=== PATIENT | female | born 1955 | race Caucasian/White ===

== ENCOUNTER 2020-01-22 06:51 | Day surgery (SDC) | payer OTHER ==
--- NOTE | 2020-01-18 13:07 | PCM.PREANE ---
Preanesthetic Assessment - Procedure Proposed Procedure: Right Total Knee Arthroplasty - Anesthesia/Transfusion/Family Hx Anesthesia History: Prior Anesthesia Without Reaction Type of Anesthesia Reaction: Excessive Nausea/Vomiting Family History of Anesthesia Reaction: No Transfusion History: No Prior Transfusion(s) Intubation History: Unknown - Review of Systems General: No Symptoms Pulmonary: No Symptoms (quit smoking in 1985, ETOH: rarely) Cardiovascular: No Symptoms Gastrointestinal: No Symptoms Neurological: No Symptoms, Tingling (right arm paresthesia, patient states she thinks she has tennis elbow.) Other: Reports: Thyroid Problems (Hypothyroid) - Physical Assessment NPO Status Date: 01/21/20 NPO Status Time: 23:00 Vital Signs: HR:61 Sat:97% Temp:97.7 B/P:102/60 Resp:16 Height: 1.6 m Weight: 82 kg ASA Class: 2 Mental Status: Alert & Oriented x3 Airway Class: Mallampati = 2 Dentition: Reports: Normal Dentition, Staint Clair(s), Caries Thyro-Mental Finger Breadths: 3 Mouth Opening Finger Breadths: 3 ROM/Head Extension: Full Lungs: Clear to Auscultation, Normal Respiratory Effort Cardiovascular: Regular Rate, Regular Rhythm, No Murmurs - Lab Values: Laboratory Last Values MRSA (PCR) Negative 01/16/20 16:35 All labs reviewed and noted and within acceptable ranges to proceed with scheduled procedure. - Imaging/EKG Impressions: EKG: SB rate=56, borderline Right axis deviation - Allergies Allergies/Adverse Reactions: Allergies Allergy/AdvReac Type Severity Reaction Status Date / Time No Known Allergies Allergy Verified 01/19/20 11:30 - Anesthesia Plan Pre-Op Medication Ordered: Other (Preoperative oral medications: lyrica, tylenol, oxycodone all at: 0705) - Acknowledgements Anesthesia Type Planned: Spinal (Right Adductor Canal Block under US guidance for post operative pain control requested by Dr. Kim.) Pt an Appropriate Candidate for the Planned Anesthesia: Yes Alternatives and Risks of Anesthesia Discussed w Pt/Guardian: Yes Pt/Guardian Understands and Agrees with Anesthesia Plan: Yes PreAnesthesia Questionnaire - HOME MEDS Home Medications: Home Meds Ascorbic Acid/Collagen Hydr [Collagen Plus Vit C] 1 tab PO DAILY 01/19/20 [History] Calcium Carb/Magnesium Ox,Carb [Neel-Mag] 1 tab PO DAILY 01/19/20 [History] Cholecalciferol (Vitamin D3) [Vitamin D3] 5,000 unit PO DAILY 01/19/20 [History] Fish Oil/Hawthorn-3 Fatty Acids [Fish Oil 1,000 MG] 1 gm PO DAILY 01/19/20 [History] Multivitamin 1 tab PO DAILY 01/19/20 [History] Thyroid,Pork [Lancing Thyroid] 120 mg PO DAILY 01/19/20 [History] Aspirin [Aspirin EC] 325 mg PO DAILY #60 tablet.dr 01/22/20 [Rx] Cyclobenzaprine [Flexeril] 10 mg PO BID PRN #20 tab 01/22/20 [Rx] Rivaroxaban [Xarelto] 10 mg PO DAILY #14 tab 01/22/20 [Rx] oxyCODONE 5 - 10 mg PO Q4H PRN #60 tab 01/22/20 [Rx]
--- NOTE | 2020-01-18 13:48 | PCM.SN.2 ---
- Free Text/Narrative Note: Anesthesia Note: Time Out: 1012 Start: 1012 Stop: 1021 Procedure: Right Adductor Canal Block under US guidance for postoperative pain control requested by Dr. Kim. Chart reviewed, allergies noted, consent signed, and monitors/alarms on and operating. Right upper leg prepped times two chloropreps. Under sterile technique and US guidance right femoral nerve located in right adductor canal. Right femoral artery and vein also located. 4 inch 21 gauge stimuplex needle guided under US and 25mls of 0.5%ropivacaine with 1:200,000 epi placed incrementally with negative aspirations noted with each injection. Patient tolerated procedure well. Thank you! Jacqueline Mei CRNA
[~2020-01-22 06:51] MED LIST: Acetaminophen 325 MG Tab PO SCH; EPINEPHrine 1 MG/ML SDV ONE; Lactated Ringers 1,000 ML IV SCH; Lidocaine 1%/Sod Bicarbonate in NS 8.4% 1 ML Syringe IDERM PRN; Morphine 8 MG, EPINEPHrine 0.3 MG, Cefuroxime 750 MG, Ketorolac 30 MG, Sodium Chloride ... PRN; Pregabalin 25 MG Cap PO SCH; Ropivacaine 0.5% 5 MG/ML 30 ML SDV ONE; Sodium Chloride 0.9% 10 ML Syringe FLUSH PRN; oxyCODONE ER 10 MG TAB.ER PO SCH
[2020-01-22] MEDS ORDERED: Ondansetron 4 MG/2 ML SDV ONE (06:59)
[2020-01-22] MEDS ORDERED: Ketorolac 30 MG/ML SDV ONE (06:59)
[2020-01-22] MEDS ORDERED: Lidocaine 1% 4 ML ONE (06:59)
[2020-01-22] MEDS ORDERED: Dexamethasone 4 MG/ML 5 ML MDV ONE (06:59)
[2020-01-22] MEDS ORDERED: Lactated Ringers 2,000 ML ONE (06:59)
[2020-01-22] MEDS ORDERED: fentaNYL 100 MCG/2 ML SDV ONE (07:00)
[2020-01-22] MEDS ORDERED: Propofol 200 MG/20 ML SDV ONE (07:00)
[2020-01-22] MEDS ORDERED: Midazolam 1 MG/ML 2 ML SDV ONE (07:01)
[2020-01-22] MEDS ORDERED: Ketamine 500 mg/10 ML MDV ONE (07:01)
[2020-01-22] MEDS ORDERED: Morphine 8 MG, EPINEPHrine 0.3 MG, Cefuroxime 750 MG, Ketorolac 30 MG, Sodium Chloride ... PRN ×5 (07:02)
[2020-01-22] MEDS ORDERED: Bupivacaine 0.25% 10 ML SDV ONE (07:34)
[2020-01-22] MEDS ORDERED: Scopolamine 1.5 MG Transdermal Patch TRDERM ONE (08:00)
[2020-01-22] MEDS ORDERED: Metoclopramide 10 MG/2 ML SDV IV PRN (08:26)
[2020-01-22] MEDS ORDERED: ePHEDrine 50 MG/ML SDV IVPUSH PRN (08:26)
[2020-01-22] MEDS ORDERED: HYDROmorphone 0.5 MG/0.5 ML Syringe IVPUSH PRN (08:26)
[2020-01-22] MEDS ORDERED: diphenhydrAMINE 50 MG/ML SDV IVPUSH PRN (08:26)
[2020-01-22] MEDS ORDERED: Ondansetron 4 MG/2 ML SDV IVPUSH PRN (08:26)
[2020-01-22] MEDS ORDERED: fentaNYL 100 MCG/2 ML SDV IVPUSH PRN (08:26)
[2020-01-22] MEDS: Vancomycin 1 GM SDV ONE ×2 (09:37→09:47)
[2020-01-22] MEDS ORDERED: HYDROmorphone 0.5 MG/0.5 ML Syringe ONE (09:52)
[2020-01-22] MEDS ORDERED: Midazolam 1 MG/ML 2 ML SDV IVPUSH STA (10:22)
--- NOTE | 2020-01-22 10:34 | PCM.POSTAN ---
POST ANESTHESIA ASSESSMENT - MENTAL STATUS Mental Status: Alert - VITAL SIGNS Vital Signs: Last Vital Signs Temp 97.5 01/22/20 10:08 Pulse 69 01/22/20 10:08 Resp 9 01/22/20 10:08 BP 116/65 01/22/20 10:08 Pulse Ox 99% 01/22/20 10:08 - RESPIRATORY Respiratory Status: Respiratory Rate WNL, Airway Patent, O2 Saturation Stable, Supplemental Oxygen - CARDIOVASCULAR CV Status: Pulse Rate WNL, Blood Pressure Stable - GASTROINTESTINAL GI Status: No Symptoms - POST OP HYDRATION Hydration Status: Adequate & Stable
[2020-01-22] MEDS ORDERED: oxyCODONE 5 MG Tab PO PRN (11:06)
--- NOTE | 2020-01-22 12:43 | CR ---
PROCEDURE INFORMATION: Exam: XR Right Knee Exam date and time: 01/22/2020 10:15 AM Age: 64 years old Clinical indication: Condition or disease; Joint replacement status; Knee; Right; Additional info: Right total knee replacement; Post-op films TECHNIQUE: Imaging protocol: XR Right knee. Views: 1 or 2 views. COMPARISON: DX Knee 3V Rt 02/21/2014 3:38 PM FINDINGS: Bones/joints: Status post TKA. Prosthetic components are well positioned and aligned. Postoperative pneumarthrosis. Soft tissues: Normal. Other findings: None IMPRESSION: Satisfactory postoperative examination of the right knee following TKA Thank you for allowing us to participate in the care of your patient. Dictated and Authenticated by: Paul Carbajal MD 01/22/2020 12:02 PM Central Time ([place] & [place]) [facility]
[2020-01-22] MEDS ORDERED: Cyclobenzaprine 10 MG Tab PO ONE (13:00)
--- NOTE | 2020-01-22 13:20 | PCM48HPAN ---
Post Anesthesia Note - EVALUATION WITHIN 48HRS OF ANESTHETIC Vital Signs in Normal Range: Yes Patient Participated in Evaluation: Yes Respiratory Function Stable: Yes Airway Patent: Yes Cardiovascular Function Stable: Yes Hydration Status Stable: Yes Pain Control Satisfactory: Yes Nausea and Vomiting Control Satisfactory: Yes Mental Status Recovered: Yes Vital Signs: Last Vital Signs Temp 36.1 C 01/22/20 11:10 Pulse 54 L 01/22/20 12:00 Resp 16 01/22/20 12:00 BP 121/71 01/22/20 12:00 Pulse Ox 97 01/22/20 12:20
[2020-01-22] MEDS ORDERED: Acetaminophen 325 MG Tab PO ONE (13:30)
--- NOTE | 2020-02-01 12:07 | PCM.OPNOTE ---
- General Post-Op/Procedure Note Date of Surgery/Procedure: 01/22/20 Operative Procedure(s): right total knee arthroplasty Pre Op Diagnosis: right knee osteoarthrosis Post-Op Diagnosis: Same Anesthesia Technique: Local, MAC, Spinal Primary Surgeon: Homero Kim Anesthesia Provider: Jacqueline Mei Equal Opportunity Assistant: Giselle Rivas Equal Opportunity Assistant: Mariela Hastings EBSharon in mLs: 5 Complications: None Condition: Good Free Text/Narrative:: 6 femur 5 10mm 32x10
--- NOTE | 2020-02-01 12:59 | OR ---
DATE OF OPERATION: 01/22/2020 SURGEON: Homero Kim MD OPERATION PERFORMED: Right total knee arthroplasty. PREOPERATIVE DIAGNOSIS: Right knee osteoarthrosis. POSTOPERATIVE DIAGNOSIS: Right knee osteoarthrosis. ANESTHESIA: Local MAC with spinal. ANESTHESIA PROVIDER: Jacqueline Mei CRNA. ASSISTANTS: Giselle Rivas PA-C; Mariela Hastings LPN. ESTIMATED BLOOD LOSS: 5 mL. COMPLICATIONS: None. CONDITION: Stable. IMPLANTS: 1. Mcclelland size 6 cemented PS femur. 2. Diane size 5 cemented universal tibial base plate. 3. Mcclelland size 5, 10 mm PS X3 polyethylene insert. 4. Mcclelland size 32 x 10 mm cemented asymmetric patella. DESCRIPTION OF PROCEDURE: The patient was identified in the preop holding area. Proper site was marked and identified by the surgeon. The patient was taken back to the operating theater. After adequate anesthesia, the patient's right lower extremity had a nonsterile tourniquet applied and it was sterilely prepped and draped in the usual sterile fashion. OR time-out was performed. The patient received 2 g IV Ancef. At this time, the right lower extremity was exsanguinated. Tourniquet was insufflated to 300 mmHg. Standard medial parapatellar incision was made. Medial parapatellar arthrotomy was created. Deep fibers of the MCL were raised and anterior fat pad was resected. At this time, attention was turned to the patella. Patella measured 24, it was resected to a 14 for a 32 x 10 mm patella. Drill holes were then drilled and found to be in adequate position. The drill was then drilled in the distal femur and the intramedullary distal femoral cutting guide was then placed. 8 mm was resected off the distal femur and was found to be an adequate resection. Sizing guide was placed. It was found to be a size 6 cemented PS femur that was shown on the implant record at the beginning of this dictation. The drill holes were drilled for the epicondylar axis using Whitesides line and epicondyles as reference. At this time, the 4-in-1 cutting block was placed. An anterior posterior and anterior and posterior chamfer cuts were then completed. Boxc cut was completed at this time. Attention was turned to the tibia. The posterior medial lateral retractors were placed. The extramedullary tibial guide was placed. It was placed in the old footprint of the ACL. It was aligned with the center of the ankle and 0 degrees of slope, 9 mm was then resected off the unaffected side. There was found to be an acceptable reduction. At this time, posterior osteophytes were removed along with medial and lateral meniscus. A trial implant was placed with a correct sized tibia that was mentioned at the beginning of the dictation. A Mcclelland size 5, 10 mm PS X3 polyethylene insert was then placed. The patient's knee was brought through range of motion. The patella was tracking centrally and was stable to varus and valgus stress. Alignment was found to be roughly at 0 degrees. The tibia was stamped and drilled in proper rotation. The universal tibial base plate was impacted in place. Next, the Mcclelland size 6 cemented PS femur impacted into place and the Mcclelland size 5, 10 mm PS X3 polyethylene insert was placed. The patient's knee was brought into full extension. The patella was then cemented in place at this time. Irricept was irrigated through the knee along with 1 L of pulse lavage irrigation with Ancef. Periarticular injection was then completed. The patient's knee was brought through a range of motion. Once the cement had time to set up and it was found to be stable to varus valgus stress, the patella was tracking centrally with full range of motion. At this time, a #2 barbed suture was used for closure of the medial parapatellar arthrotomy. Topical tranexamic acid was placed. 2-0 Vicryl was used subcutaneously, Prineo was used for the skin. The patient tolerated the procedure well and was sent to the PACU in stable condition. MMODAL /[id number] [facility]
== END 2020-01-22 15:23 | disposition home or self-care (01) ==
LOC: JD.SDS 06:51 → EDSTATUS 14:30 → JD.SDS 15:23 → EDSTATUS 01-29 14:30
PROVIDERS: ATTEND Orthopaedic Surgery
DX: M17.11 Unilateral primary osteoarthritis, right knee (principal); E03.8 Other specified hypothyroidism; G89.18 Other acute postprocedural pain; Z79.890 Hormone replacement therapy; Z79.899 Other long term (current) drug therapy; Z98.890 Other specified postprocedural states; Z87.891 Personal history of nicotine dependence
CPT/HCPCS: 27447; 73560; 87641; 97110; 97116; 97161; 97165; 97535; A9270; C1713; C1776; J0171; J0697; J1100; J1170; J1885; J2001; J2250; J2270; J2405; J2704; J2795; J3010; J3370; J3490; J7120; 01402; 64450; J2370